=== PATIENT | female | born 1985 | race Caucasian/White ===

== ENCOUNTER 2022-01-25 18:17 | Emergency (ER) | payer OTHER ==
[~2022-01-25] VITALS: Ht 172.7 cm; Wt 72.6 kg
[2022-01-25 18:28] VITALS: BP 159/89
--- NOTE | 2022-01-25 19:30 | NUR ---
PT CALLED IN LOBBY AND OUTSIDE BY [facility] WITH NO ANSWER.
--- NOTE | 2022-01-25 19:55 | NUR ---
LPATIENT LEFT WITHOUT BEING SEEN. NO FURTHER CARE PROVIDED FOR PATIENT.
--- NOTE | 2022-01-25 19:55 | NUR ---
PT CALLED IN LOBBY AND OUTSIDE WITH NO ANSWER.
== END 2022-01-25 19:55 | disposition left against medical advice (07) ==
LOC: MED 18:17
DX: L29.9 Pruritus, unspecified (principal); Z88.0 Allergy status to penicillin; Z53.21 Procedure and treatment not carried out due to patient leaving prior to being seen by health care provider